=== PATIENT | male | born 1965 | race Caucasian/White ===

== ENCOUNTER 2018-12-30 15:16 | Inpatient (IN) ==
[2018-12-30 16:29] LABS: Baso % (Auto) 0.2 % (0.0-2.0); Eos # (Auto) 0.1 th/mm3 (0.0-0.4); Eos % (Auto) 1.5 % (0.0-4.0); Hematocrit 47.9 % (39.0-51.0); Hemoglobin 16.4 gm/dL (13.0-17.0); Lymph % (Auto) 17.1 % (9.0-44.0); Mean Corpuscular HGB Conc 34.3 % (32.0-36.0); Mean Corpuscular Hemoglobin 36.2 pg (27.0-34.0); Mean Corpuscular Volume 105.4 fL (80.0-100.0); Mean Platelet Volume 7.6 fL (7.0-11.0); Mono # (Auto) 0.5 th/mm3 (0.0-0.9); Mono % (Auto) 8.4 % (0.0-8.0); Neut # (Auto) 4.5 th/mm3 (1.8-7.7); Neut % (Auto) 72.8 % (16.0-70.0); Platelet Count 242 th/mm3 (150-450); Red Blood Count 4.54 mil/mm3 (4.50-5.90); White Blood Count 6.1 th/mm3 (4.0-11.0)
[2018-12-30 17:00] LABS: Alanine Aminotransferase 27 U/L (12-78); Albumin 4.8 g/dL (3.4-5.0); Anion Gap 14 meq/L (5-15); Aspartate Aminotransferase 41 U/L (15-37); Blood Urea Nitrogen 12 mg/dL (7-18); Calcium 9.3 mg/dL (8.5-10.1); Carbon Dioxide 23.5 meq/L (21.0-32.0); Chloride 102 meq/L (98-107); Glomerular Filtration Rate 77 mL/min (>89); Glucose,Random 88 mg/dL (74-106); Magnesium 2.1 mg/dL (1.5-2.5); Potassium 3.3 meq/L (3.5-5.1); Sodium 139 meq/L (136-145)
[2018-12-30] MEDS ORDERED: ALPRAZolam 0.5 MG Tablet PO ONE (17:00)
--- NOTE | 2018-12-30 17:00 | ED ---
HPI General Chief Complaint: Psychiatric Symptoms Stated Complaint: Psych eval/OBPD Time Seen by Provider: 12/30/18 15:56 Source: patient and police Mode of arrival: other (police) Limitations: no limitations History of Present Illness HPI Narrative: Patient is a 53-year-old male presenting to the [facility] for psychiatric evaluation under [place] act. Patient has severe PTSD. He has not been eating well or sleeping. He denies any suicidal homicidal ideations. He does report any difference to his life. He states that he would not mind just passing away peacefully in his sleep. 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 He denies any physical complaints at this time. He states he does feel anxious. He reports that he had been on medications for PTSD in the past, he states he has had trials of several antidepressants and discontinued the use due to physically feeling poor while taking them. MD complaint: Reports feels depressed and other (PTSD) Onset (ago): year(s) Duration: constant and getting worse History of same: Yes Relieving factors: none Context: Reports not taking psychiatric medications and significant life stressor Associated psychiatric symptoms: Reports depression and racing thoughts Associated symptoms: Reports insomnia Treatments prior to arrival: Reports none Related Data Home Medications Medication Instructions Recorded Confirmed gabapentin [Neurontin] 800 mg PO BID 12/30/18 12/30/18 hydrocodone-acetaminophen [[place]] 1 tab PO Q4-6H PRN 12/30/18 12/30/18 Allergies Allergy/AdvReac Type Severity Reaction Status Date / Time No Known Allergies Allergy Verified 12/30/18 15:27 Review of Systems ROS: all other systems reviewed are negative [facility] Medical History Medical History Compression fracture of L2 vertebra (Acute) Compression fracture of L3 vertebra (Acute) Depression (Acute) Migraines (Acute) PTSD (post-traumatic stress disorder) (Acute) Social History Social History Smoking Status: Never smoker How Often Do You Have a Drink Containing Alcohol: Never Recent Travel in USA within the Last 8 Weeks: No Recent Out of Country Travel within the Last 8 Weeks: No Immunization History Tetanus Immunization: <5 Years Exam Narrative Exam Narrative: GENERAL: Thin, well-developed, alert male. Presenting in no acute distress. SKIN: Focused skin assessment warm/dry. HEAD: Atraumatic. Normocephalic. EYES: Pupils equal and round. No scleral icterus. No injection or drainage. ENT: No nasal bleeding or discharge. Mucous membranes pink and moist. NECK: Trachea midline. No JVD. CARDIOVASCULAR: Mildly tachycardic. No murmur appreciated. RESPIRATORY: No accessory muscle use. Clear to auscultation. Breath sounds equal bilaterally. GASTROINTESTINAL: Abdomen soft, non-tender, nondistended. Hepatic and splenic margins not palpable. MUSCULOSKELETAL: No obvious deformities. No clubbing. No cyanosis. No edema. NEUROLOGICAL: Awake and alert. No obvious cranial nerve deficits. Motor grossly within normal limits. Normal speech. PSYCHIATRIC: Appropriate mood and affect; insight and judgment normal. Course Initial Documented Vital Signs Temperature 99.5 F 12/30/18 15:28 Pulse Rate 135 H 12/30/18 15:28 Respiratory Rate 18 12/30/18 15:28 Blood Pressure 127/86 12/30/18 15:28 Pulse Oximetry 98 12/30/18 15:28 Last Documented Vital Signs Temperature 99.5 F 12/30/18 15:28 Pulse Rate 135 H 12/30/18 15:28 Respiratory Rate 18 12/30/18 15:28 Blood Pressure 127/86 12/30/18 15:28 Pulse Oximetry 98 12/30/18 15:28 Medical Decision Making [facility] Narrative Medical decision making narrative: Patient is well-appearing 53-year-old male presenting under [place] act for psychiatric evaluation. On arrival patient's heart rate was noted at 135. On exam in delta pod his heart rate is between 96 and 105. Patient reports feeling anxious. Tachycardia is likely secondary to that. This time patient will be given Xanax orally. Oral fluids were encouraged. CBC with no acute findings Chemistry with potassium 3.3, oral replacement ordered. Patient's heart rate trended down from 135->104. At this time patient is medically cleared for psychiatric evaluation. Medical Screen Exam Complete: Yes Emergency Medical Condition: Yes Differential Diagnosis Differential Diagnosis: Mood disorder versus noncompliance versus metabolic abnormality versus cardiac arrhythmia versus other Lab Data Result diagrams: 12/30/18 16:00 12/30/18 16:00 Lab Results 12/30/18 12/30/18 12/30/18 Range/Units 16:00 16:00 16:00 WBC 6.1 (4.0-11.0) th/mm3 RBC 4.54 (4.50-5.90) mil/mm3 Hgb 16.4 (13.0-17.0) gm/dL Hct 47.9 (39.0-51.0) % MCV 105.4 H (80.0-100.0) fL MCH 36.2 H (27.0-34.0) pg MCHC 34.3 (32.0-36.0) % RDW 13.0 (11.6-17.2) % Plt Count 242 (150-450) th/mm3 MPV 7.6 (7.0-11.0) fL Neut % (Auto) 72.8 H (16.0-70.0) % Lymph % (Auto) 17.1 (9.0-44.0) % [place] % (Auto) 8.4 H (0.0-8.0) % Eos % (Auto) 1.5 (0.0-4.0) % Baso % (Auto) 0.2 (0.0-2.0) % Neut # (Auto) 4.5 (1.8-7.7) th/mm3 Lymph # (Auto) 1.0 (1.0-4.8) th/mm3 [place] # (Auto) 0.5 (0.0-0.9) th/mm3 Eos # (Auto) 0.1 (0.0-0.4) th/mm3 Baso # (Auto) 0.0 (0.0-0.2) th/mm3 WBC Differential . Differential Comment Auto diff final Sodium 139 (136-145) meq/L Potassium 3.3 L (3.5-5.1) meq/L Chloride 102 (98-107) meq/L Carbon Dioxide 23.5 (21.0-32.0) meq/L Anion Gap 14 (5-15) meq/L BUN 12 (7-18) mg/dL Creatinine 1.01 (0.60-1.30) mg/dL Estimated GFR 77 L (>89) mL/min Random Glucose 88 (74-106) mg/dL Calcium 9.3 (8.5-10.1) mg/dL Magnesium 2.1 (1.5-2.5) mg/dL Total Bilirubin 1.2 H (0.2-1.0) mg/dL AST 41 H (15-37) U/L ALT 27 (12-78) U/L Alkaline Phosphatase 95 (45-117) U/L Total Protein 8.8 H (6.4-8.2) g/dL Albumin 4.8 (3.4-5.0) g/dL TSH 1.020 (0.358-3.740) uIU/mL Salicylates 2.5 L (2.8-20.0) mg/dL Urine Opiates Screen (Neg) Acetaminophen Less than 2.0 L (10.0-30.0) mcg/mL Ur Barbiturates Screen (Neg) Ur Amphetamines Screen (Neg) U Benzodiazepines Scrn (Neg) Urine Cocaine Screen (Neg) U Cannabinoids Screen (Neg) Serum Alcohol Less than 3 (0-5) mg/dL 12/30/18 Range/Units 17:00 WBC (4.0-11.0) th/mm3 RBC (4.50-5.90) mil/mm3 Hgb (13.0-17.0) gm/dL Hct (39.0-51.0) % MCV (80.0-100.0) fL MCH (27.0-34.0) pg MCHC (32.0-36.0) % RDW (11.6-17.2) % Plt Count (150-450) th/mm3 MPV (7.0-11.0) fL Neut % (Auto) (16.0-70.0) % Lymph % (Auto) (9.0-44.0) % [place] % (Auto) (0.0-8.0) % Eos % (Auto) (0.0-4.0) % Baso % (Auto) (0.0-2.0) % Neut # (Auto) (1.8-7.7) th/mm3 Lymph # (Auto) (1.0-4.8) th/mm3 [place] # (Auto) (0.0-0.9) th/mm3 Eos # (Auto) (0.0-0.4) th/mm3 Baso # (Auto) (0.0-0.2) th/mm3 WBC Differential Differential Comment Sodium (136-145) meq/L Potassium (3.5-5.1) meq/L Chloride (98-107) meq/L Carbon Dioxide (21.0-32.0) meq/L Anion Gap (5-15) meq/L BUN (7-18) mg/dL Creatinine (0.60-1.30) mg/dL Estimated GFR (>89) mL/min Random Glucose (74-106) mg/dL Calcium (8.5-10.1) mg/dL Magnesium (1.5-2.5) mg/dL Total Bilirubin (0.2-1.0) mg/dL AST (15-37) U/L ALT (12-78) U/L Alkaline Phosphatase (45-117) U/L Total Protein (6.4-8.2) g/dL Albumin (3.4-5.0) g/dL TSH (0.358-3.740) uIU/mL Salicylates (2.8-20.0) mg/dL Urine Opiates Screen Neg (Neg) Acetaminophen (10.0-30.0) mcg/mL Ur Barbiturates Screen Neg (Neg) Ur Amphetamines Screen Neg (Neg) U Benzodiazepines Scrn Neg (Neg) Urine Cocaine Screen Neg (Neg) U Cannabinoids Screen Pos H (Neg) Serum Alcohol (0-5) mg/dL Discharge Plan Discharge Disposition Patient Disposition: Sign Out(ED Internal Use Only) Discharge Condition Condition: Stable Discharge Details Diagnosis: Medical clearance for psychiatric admission, Post traumatic stress disorder Physicians Team ED Provider: Dereck Singh ED Midlevel Provider: Ruth Zimmer Primary Care Provider: UNKNOWN, Rxs /Orders / Referrals /Forms Prescriptions: No Action gabapentin [Neurontin] 800 mg Tablet 800 mg PO BID RF: 0 hydrocodone-acetaminophen [[place]] 7.5-325 mg Tablet 1 tab PO Q4-6H PRN (Reason: Acute Pain) RF: 0 Status ED Status: Medically Cleared
[2018-12-30 17:08] LABS: Alkaline Phosphatase 95 U/L (45-117); Total Protein 8.8 g/dL (6.4-8.2)
[2018-12-30 17:21] LABS: Amphetamine Screen,Urine Neg (Neg); Barbiturate Screen,Urine Neg (Neg); Cannabinoid Screen,Urine Pos (Neg); Cocaine Screen,Urine Neg (Neg)
[2018-12-30 17:22] LABS: Opiate Screen,Urine Neg (Neg)
[2018-12-30] MEDS ORDERED: Gabapentin 400 MG Capsule PO ONE (20:41)
[2018-12-31] MEDS ORDERED: Acetaminophen 325 MG Tablet PO PRN (11:16)
[2018-12-31] MEDS ORDERED: Aluminum/Magnesium/Simethacone Susp 30 ML UDC PO PRN (11:16)
--- NOTE | 2018-12-31 11:27 | P.HPPSY ---
Provisional Diagnosis Admission Date: December 30, 2018 15:16 [facility] I.: PTSD Competence Certification of Person's Competence To Provide Express and Informed Consent I have personally examined Aaron Vela, a person being served at [facility] on, December 31, 2018 1124. Express and informed consent means consent voluntarily given in writing, by a competent person, after sufficient explanation and disclosure of the subject matter involved to enable the person to make a knowing and willful decision without any element of force, fraud, deceit, duress, or other form of constraint or coercion. This person is 18 years of age or older, is not now known to be incompetent to consent to treatment with a guardian advocate, and does not have a health care surrogate or proxy currently making medical treatment decisions. I have found this person to be one of the following: [xxxx] Competent to provide express and informed consent, as defined above, for voluntary admission to this facility and is competent to provide express and informed consent for treatment. He/she has the consistent capacity to make well reasoned, willful, and knowing decisions concerning his or her medical or mental health treatment. The person fully and consistently understands the purpose of the admission for examination/placement and is fully capable of personally exercising all rights assured under [place] Incompetent to provide express and informed consent to voluntary admission, and this is incompetent to provide express and informed consent to treatment. The person must be transferred to involuntary status and a petition for a guardian advocate filed with the Circuit Court. [] Refusing to provide express and informed consent to voluntary admission but is competent to provide express and informed consent for treatment. The person must be discharged or transferred to involuntary status. Form shall be completed within 24 hours of a person's arrival at the receiving facility and filed in the clinical record of each person: 1. Admitted on a voluntary basis 2. Permitted to provide express and informed consent to his/her own treatment 3. Allowed to transfer from involuntary to voluntary status 4. Prior to permitting a person to consent to his or her own treatment after having been previously found incompetent to consent to treatment. 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 How told his Chiqui last night that he wanted to (how it is a former [facility]) patient seen screen in the ED urine toxicology positive for marijuana blood alcohol level negative. 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 He has recently moved here from the [facility] area with his to help care for his [id number]. Patient states she has been diagnosed with PTSD in [place] has had treatment for that with multiple perhaps insufficient trials of various medications. He states over the past few weeks to months he has had increased nightmares flashbacks anxiety tension loss of appetite and poor sleep related to this. There is also some stress related to the fact that they moved. The fall 2017 to help care for his mother- in-law he has had no significant social activity since then. They did leave their 21-year-old son who is working in the [place] area up there. He misses his son. Patient is also trying to find counseling in this area. But there seems to be some reluctance and resistance to acknowledging the need for appropriate trials on various medications. He does denies suicidality or homicidality with this. He denies any alcohol use with this. However he has been on medicinal marijuana in [place]. He stated that did help him with his sleep and his nightmares. Patient does acknowledge having weapons in the house to pistols and one rifle patient denies any physical or sexual abuse as a child. Denies any mental illness in the family. If current medical problems though he does take gabapentin for back pain we did discuss medications I feel he would benefit from an antidepressant and also a second generation atypical antipsychotic to address the significant PTSD symptoms. Patient did show some increased anxiety reluctance to spend any significant time on the inpatient unit however he is willing to stay briefly to start these medications and observe for any untoward side effects. This will admit him I will lift the [place] act to allow him to sign voluntary we will place him on Zoloft 25 mg in the morning and Zyprexa 5 mg at bedtime and observe him overnight. We will reassess tomorrow about length of stay Review of Systems Patient does have a history of migraines and compression fracture lumbar spine All other systems reviewed negative except as stated in HPI [facility] - History History Provided By: Patient - Medical History Medical History: Medical History (Last Reviewed 12/31/18 @ 11:35 by Ty Ribeiro MD) Compression fracture of L2 vertebra Compression fracture of L3 vertebra Depression Migraines PTSD (post-traumatic stress disorder) - Social History I have reviewed the patient's Social History: Yes - Tobacco History Smoking Status: Never smoker - Alcohol History How Often Do You Have a Drink Containing Alcohol: Never - Substance Use History Substance History: No History of Abuse - Travel History Recent Travel in the USA Within the Last 8 Weeks: No Recent Travel Out of the Country Within the Last 8 Weeks: No - Immunization History Tetanus Immunization: <5 Years Quality Measures - Psychiatric History Psychological trauma history: 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 Violence risk to others in the last 6 months: Low Violence risk to self in the last 6 months: Low to moderate - Substance Abuse History Drug or alcohol use in the past 12 months: Patient has used marijuana that was legal to obtain in [place] - Patient Strengths Patient's strengths (minimum of 2): Patient verbal able [facility] Medications and Allergies Allergies Allergy/AdvReac Type Severity Reaction Status Date / Time No Known Allergies Allergy Verified 12/30/18 15:27 Home Medications Medication Instructions Recorded Confirmed Type gabapentin [Neurontin] 800 mg PO BID 12/30/18 12/30/18 History hydrocodone-acetaminophen [[place]] 1 tab PO Q4-6H PRN 12/30/18 12/30/18 History Results - Labs CBC & Chem 7: 12/30/18 16:00 12/30/18 16:00 Labs: Laboratory Results - last 24 hr 12/30/18 12/30/18 12/30/18 16:00 16:00 16:00 WBC 6.1 RBC 4.54 Hgb 16.4 Hct 47.9 MCV 105.4 H MCH 36.2 H MCHC 34.3 RDW 13.0 Plt Count 242 MPV 7.6 Neut % (Auto) 72.8 H Lymph % (Auto) 17.1 [place] % (Auto) 8.4 H Eos % (Auto) 1.5 Baso % (Auto) 0.2 Neut # (Auto) 4.5 Lymph # (Auto) 1.0 [place] # (Auto) 0.5 Eos # (Auto) 0.1 Baso # (Auto) 0.0 WBC Differential . Differential Comment Auto diff final Sodium 139 Potassium 3.3 L Chloride 102 Carbon Dioxide 23.5 Anion Gap 14 BUN 12 Creatinine 1.01 Estimated GFR 77 L Random Glucose 88 Calcium 9.3 Magnesium 2.1 Total Bilirubin 1.2 H AST 41 H ALT 27 Alkaline Phosphatase 95 Total Protein 8.8 H Albumin 4.8 TSH 1.020 Salicylates 2.5 L Urine Opiates Screen Acetaminophen Less than 2.0 L Ur Barbiturates Screen Ur Amphetamines Screen U Benzodiazepines Scrn Urine Cocaine Screen U Cannabinoids Screen Serum Alcohol Less than 3 12/30/18 17:00 WBC RBC Hgb Hct MCV MCH MCHC RDW Plt Count MPV Neut % (Auto) Lymph % (Auto) [place] % (Auto) Eos % (Auto) Baso % (Auto) Neut # (Auto) Lymph # (Auto) [place] # (Auto) Eos # (Auto) Baso # (Auto) WBC Differential Differential Comment Sodium Potassium Chloride Carbon Dioxide Anion Gap BUN Creatinine Estimated GFR Random Glucose Calcium Magnesium Total Bilirubin AST ALT Alkaline Phosphatase Total Protein Albumin TSH Salicylates Urine Opiates Screen Neg Acetaminophen Ur Barbiturates Screen Neg Ur Amphetamines Screen Neg U Benzodiazepines Scrn Neg Urine Cocaine Screen Neg U Cannabinoids Screen Pos H Serum Alcohol Exam Vital signs: Vital Signs 12/30/18 15:28 12/30/18 16:33 12/30/18 17:30 Temperature 99.5 F Pulse Rate 135 H 96 H 107 H Respiratory Rate 18 Blood Pressure 127/86 Pulse Oximetry 98 12/30/18 22:57 12/31/18 06:26 Temperature 98.2 F Pulse Rate 100 H 81 Respiratory Rate 18 Blood Pressure 104/66 108/65 Pulse Oximetry 98 99 Intake & Output 12/30/18 12/31/18 12/31/18 18:59 06:59 18:59 Weight 61.235 kg Narrative: Patient is seen in his room and J pod he is in no acute distress, he is in no respiratory distress, no complaints of chest pain or abdominal pain. Patient moving all 4 extremities without difficulty Mental Status Examination Appearance: Appropriate Consciousness: Alert Orientation: x4 Motor Activity: Normal gait Speech: Unremarkable Language: Adequate Fund of Knowledge: Adequate Attention and Concentration: Adequate Memory: Unremarkable Mood: Sad, Anxious, Irritable Affect: Other (Slight increased range and intensity) Thought Process & Associations: Intact Thought Content: Appropriate Hallucination Type: None Delusion Type: None Suicidal Ideation: Yes (Vague) Suicidal Plan: No Suicidal Intention: No Homicidal Ideation: No Homicidal Plan: No Homicidal Intention: No Insight: Fair Judgment: Adequate (Fair) Assessment and Plan - Assessment (1) Post traumatic stress disorder Code(s): F43.10 - Post-traumatic stress disorder, unspecified Status: Acute - Plan Plan: Estimated LOS: [] 1-2 days Patient does meet criteria for further brief observation and assessment the medication trial. They feel he does have capacity I will lift the [place] act allow to sign voluntary we will start him on Zoloft 25 mg daily and Zyprexa 5 mg at at bedtime today and reassess tomorrow. We will also have counselors tomorrow arrange for psychiatric follow-up. Patient does have counseling arranged through his law enforcement contact which we will also continue him on his gabapentin Justification for Continued Inpatient Stay: At this time patient may decompensated placed in a lower level of care Discharge Planning: Return home with Request Healthcare Surrogate/Guardian Advocate?: No
[2018-12-31] MEDS: Gabapentin 400 MG Capsule PO SCH ×2 (12:00→20:27)
[2018-12-31] MEDS: Sertraline 50 MG Tablet PO SCH (12:00)
[2019-01-01 05:57] VITALS: BP 93/63; PULSE 72; RESP 16; TEMP 98.8; O2SAT 97
[2019-01-01] MEDS: Sertraline 50 MG Tablet PO SCH (08:46)
[2019-01-01] MEDS: Gabapentin 400 MG Capsule PO SCH (08:47)
--- NOTE | 2019-01-01 11:53 | P.DSPSY ---
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 How told his Chiqui last night that he wanted to (how it is a former [facility]) patient seen screen in the ED urine toxicology positive for marijuana blood alcohol level negative. 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 He has recently moved here from the [facility] area with his to help care for his [id number]. Patient states she has been diagnosed with PTSD in [place] has had treatment for that with multiple perhaps insufficient trials of various medications. He states over the past few weeks to months he has had increased nightmares flashbacks anxiety tension loss of appetite and poor sleep related to this. There is also some stress related to the fact that they moved. The fall 2017 to help care for his mother- in-law he has had no significant social activity since then. They did leave their 21-year-old son who is working in the [facility] up there. He misses his son. Patient is also trying to find counseling in this area. But there seems to be some reluctance and resistance to acknowledging the need for appropriate trials on various medications. He does denies suicidality or homicidality with this. He denies any alcohol use with this. However he has been on medicinal marijuana in [place]. He stated that did help him with his sleep and his nightmares. Patient does acknowledge having weapons in the house to pistols and one rifle patient denies any physical or sexual abuse as a child. Denies any mental illness in the family. If current medical problems though he does take gabapentin for back pain we did discuss medications I feel he would benefit from an antidepressant and also a second generation atypical antipsychotic to address the significant PTSD symptoms. Patient did show some increased anxiety reluctance to spend any significant time on the inpatient unit however he is willing to stay briefly to start these medications and observe for any untoward side effects. This will admit him I will lift the [place] act to allow him to sign voluntary we will place him on Zoloft 25 mg in the morning and Zyprexa 5 mg at bedtime and observe him overnight. We will reassess tomorrow about length of stay Tobacco Use In Past 30 Days: Yes How Often Do You Have a Drink Containing Alcohol: 4 or more times a week Hospital Course: Patient's hospital course was uneventful. Patient somewhat reluctantly agreed to a further 24-hour observation and assessment and medication exposure. Patient seen this morning in his room with floor staff he is alert oriented with improved affect better eye contact is more animated today states he slept 5 hours straight last night which did please him. He continues to deny suicidality or homicidality voices or visions. States she is had no problems with the medication. He does wish to be discharged to return home to his family. At this time patient no longer meets [place] act criteria lift [place] act allow patient to be discharged to himself with Rx times 1 month. We will have her counselor to arrange for psychiatric follow-up. He may follow up counseling through his own efforts also recommend absolute sobriety - Discharge Discharge Date: 01/01/19 - Discharge Diagnosis (1) Post traumatic stress disorder Code(s): F43.10 - Post-traumatic stress disorder, unspecified Status: Acute Discharge Disposition: Home - Discharge Instructions Discharge Diet: Regular Diet Activities You Can Perform: Regular- No Restrictions - Discharge Time > 30 minutes Mental Status Examination Appearance: Appropriate Consciousness: Alert Orientation: x4 Motor Activity: Normal gait Speech: Unremarkable Language: Adequate Fund of Knowledge: Adequate Attention and Concentration: Adequate Memory: Unremarkable Mood: Sad, Anxious, Irritable Affect: Other (Slight increased range and intensity) Thought Process & Associations: Intact Thought Content: Appropriate Hallucination Type: None Delusion Type: None Suicidal Ideation: Yes (Vague) Suicidal Plan: No Suicidal Intention: No Homicidal Ideation: No Homicidal Plan: No Homicidal Intention: No Insight: Fair Judgment: Adequate (Fair) Discharge/Advance Care Plan - Results Vital Signs: Last Vital Signs Temp 98.8 F 01/01/19 05:55 Pulse 72 01/01/19 05:55 Resp 16 01/01/19 05:55 BP 93/63 L 01/01/19 05:55 Pulse Ox 97 01/01/19 05:55 Lab Results: Laboratory Results TSH 1.020 uIU/mL (0.358-3.740) 12/30/18 16:00 Summary of Procedures: None done Pending Results: None - Medications Number of antipsychotic medications at discharge: 1 - Discharge Care Plan Goals to Promote Your Health: * To prevent worsening of your condition and complications * To maintain your health at the optimal level Directions to Meet Your Goals: Take your medications as prescribed Follow your dietary instruction Follow activity as directed Keep your appointments as scheduled Take your immunizations and boosters as scheduled If your symptoms worsen call your PCP, if no PCP go to Urgent Care Center or Emergency Room For 06/06 questions related to your inpatient stay or results of tests pending at discharge, please contact Dr. Ty Ribeiro MD at Smoking is Dangerous to Your Health. Avoid second hand smoking
== END 2019-01-01 13:30 | disposition home or self-care (01) | DRG 882 ==
LOC: NEPD 15:16 → NEDA 12-31 11:31 → H260 12-31 13:05
PROVIDERS: ADMIT Psychiatry & Neurology Psychiatry; ATTEND Psychiatry & Neurology Psychiatry